=== PATIENT | male | born 1970 | race Caucasian/White ===

== ENCOUNTER 2016-11-16 00:25 | Observation (INO) | payer OTHER ==
[~2016-11-16] VITALS: Ht 162.6 cm; Wt 144.7 kg
[2016-11-16 03:12] LABS: BASOPHIL % 0.9 % (0-2); PLATELET COUNT 213 x10^3mcL (130-400); RED CELL DISTRIBUTION WIDTH 12.6 % (11.5-14.5)
[2016-11-16 03:37] LABS: CALCIUM 8.9 mg/dL (8.5-10.1); CHLORIDE SERUM 103 mmol/L (98-107); CREATININE SERUM 0.7 mg/dL (0.7-1.3); GFR1 > 60 mL/min; GLUCOSE SERUM 123 mg/dL (74-106); POTASSIUM SERUM 4.4 mmol/L (3.5-5.1); SODIUM SERUM 140 mmol/L (136-145)
[2016-11-16 03:41] LABS: ALBUMIN 3.7 g/dL (3.4-5.0); ALKALINE PHOSPHATASE 82 U/L (46-116); ALT/SGPT 26 U/L (16-63); AST/SGOT 17 U/L (15-37); BILIRUBIN TOTAL 0.65 mg/dL (0.20-1.00); LIPASE 125 IU/L (73-393); TOTAL PROTEIN, SERUM 7.5 g/dL (6.4-8.2)
[2016-11-16] MEDS ORDERED: HYDROCHLOROTH12.5 M2 PO (04:40)
[2016-11-16 05:50] VITALS: BP 122/63
[2016-11-16 06:49] LABS: CHOLESTEROL/HDL RATIO 4.8
[2016-11-16 07:02] LABS: FREE T4 1.18 ng/dL (0.76-1.46); FREE THYROXINE INDEX 3.1 ug/dL (1.4-4.5); T4(THYROXINE) 11.3 ug/dL (4.7-13.3)
[2016-11-16 07:17] LABS: T3 TOTAL 1.63 ng/mL
[2016-11-16 09:08] VITALS: BP 105/54
[2016-11-16 09:38] LABS: microscopic required? NO
[2016-11-16 10:00] LABS: urine erythrocyte NEGATIVE (NEGATIVE)
[2016-11-16 11:02] LABS: AMPHETAMINE QUAL UR NONE DETECTED (NEG <=1000)
[2016-11-16 13:28] VITALS: BP 125/70
[2016-11-16 17:03] VITALS: BP 106/58
[2016-11-16 21:25] VITALS: BP 113/48
[2016-11-17 06:03] VITALS: BP 111/62
[2016-11-17 06:41] LABS: BASOPHIL % 0.5 % (0-2); PLATELET COUNT 195 x10^3mcL (130-400); RED CELL DISTRIBUTION WIDTH 13.7 % (11.5-14.5)
[2016-11-17 06:44] LABS: CALCIUM 8.3 mg/dL (8.5-10.1); CARBON DIOXIDE 29.6 mmol/L (21-32); CHLORIDE SERUM 106 mmol/L (98-107); CREATININE SERUM 0.7 mg/dL (0.7-1.3); GFR1 > 60 mL/min; GLUCOSE SERUM 94 mg/dL (74-106); MAGNESIUM 2.1 mg/dL (1.8-2.4); PHOSPHOROUS 3.9 mg/dL (2.5-4.9); POTASSIUM SERUM 4.4 mmol/L (3.5-5.1); SODIUM SERUM 141 mmol/L (136-145)
[2016-11-17] MEDS ORDERED: LAC PO (10:26)
[2016-11-17] MEDS ORDERED: AUG500 PO (10:26)
[2016-11-17 11:00] VITALS: BP 100/56
== END 2016-11-17 14:26 | disposition home or self-care (01) | DRG 254 ==
LOC: ED 00:25 → DU 05:02
PROVIDERS: Emergency Medicine; ADMIT Family Medicine
DX: K42.0 Umbilical hernia with obstruction, without gangrene (principal); E66.01 Morbid (severe) obesity due to excess calories; E11.9 Type 2 diabetes mellitus without complications; K36 Other appendicitis; Z98.84 Bariatric surgery status; Z89.412 Acquired absence of left great toe; Z87.891 Personal history of nicotine dependence
CPT/HCPCS: 80307; 82962; 83880; 84439; G0378; G0480; J0500; J2543; J3490; J7030; Q0092

== ENCOUNTER 2018-02-22 07:06 | Emergency (ER) | payer OTHER ==
[~2018-02-22] VITALS: Ht 162.6 cm; Wt 147.4 kg
[~2018-02-22 07:06] MED LIST: AUG500 PO; HYDROCHLOROTH12.5 M2 PO; LAC PO
[2018-02-22 07:32] VITALS: Ht 162.6 cm; Wt 147.4 kg
[2018-02-22 09:46] LABS: BASOPHIL % 0.8 % (0-2); PLATELET COUNT 188 x10^3mcL (130-400); RED CELL DISTRIBUTION WIDTH 14.1 % (11.5-14.5)
[2018-02-22 10:03] LABS: CARBON DIOXIDE 28.6 mmol/L (21-32); CHLORIDE SERUM 103 mmol/L (98-107); CREATININE SERUM 0.8 mg/dL (0.7-1.3); GFR1 > 60 mL/min; GLUCOSE SERUM 128 mg/dL (74-106); POTASSIUM SERUM 4.2 mmol/L (3.5-5.1); SODIUM SERUM 139 mmol/L (136-145)
[2018-02-22 10:07] LABS: ALBUMIN 3.6 g/dL (3.4-5.0); ALKALINE PHOSPHATASE 77 U/L (46-116); ALT/SGPT 24 U/L (16-63); AST/SGOT 16 U/L (15-37); BILIRUBIN TOTAL 0.82 mg/dL (0.20-1.00); LIPASE 121 IU/L (73-393)
[2018-02-22 11:20] VITALS: BP 148/84
== END 2018-02-22 11:21 | disposition home or self-care (01) ==
LOC: ED 07:06
PROVIDERS: Emergency Medicine
DX: K80.20 Calculus of gallbladder without cholecystitis without obstruction (principal); I10 Essential (primary) hypertension; Z98.84 Bariatric surgery status
CPT/HCPCS: C9113; J2405; J7030; Q0092

== ENCOUNTER 2019-10-01 16:17 | Inpatient (IN) | payer SELFPAY ==
[~2019-10-01] VITALS: Ht 162.6 cm; Wt 153.8 kg
[2019-10-01 16:22] VITALS: Ht 162.6 cm; Wt 153.8 kg
--- NOTE | 2019-10-01 16:48 | NUR ---
SEEN BY DR. CADET. ORDERS NOTED.
[2019-10-01 17:07] LABS: CARBON DIOXIDE 23.2 mmol/L (21-32); CHLORIDE SERUM 101 mmol/L (98-107); GFR1 > 60 mL/min; GLUCOSE SERUM 176 mg/dL (74-106); POTASSIUM SERUM 3.6 mmol/L (3.5-5.1); SODIUM SERUM 138 mmol/L (136-145)
[2019-10-01 17:11] LABS: ALBUMIN 3.9 g/dL (3.4-5.0); ALKALINE PHOSPHATASE 81 U/L (46-116); ALT/SGPT 73 U/L (16-63); AMYLASE 30 U/L (25-115); AST/SGOT 32 U/L (15-37); BILIRUBIN TOTAL 0.7 mg/dL (0.20-1.00); LIPASE 120 IU/L (73-393); TOTAL PROTEIN, SERUM 7.7 g/dL (6.4-8.2)
[2019-10-01 17:23] LABS: BASOPHIL % 0.3 % (0-2); PLATELET COUNT 253 x10^3mcL (130-400)
--- NOTE | 2019-10-01 20:09 | NUR ---
REPORT GIVEN TO CHITRA VELIZ TO ASSUME CARE OF PT.
--- NOTE | 2019-10-01 20:17 | NUR ---
RECEIVED PT FROM ED VIA WHEELCHAIR, CAME IN DUE TO ABDOMINAL PAIN. AAOX4. DENIES HEADACHE/DIZZINESS. NO SOB NOTED, LUNG SOUNDS CTA, O2 SAT=95%, RA. DENIES CHEST PAIN/PRESSURE. DENIES ABDOMINAL PAIN/NAUSEA/VOMITING AT THIS TIME. BOWEL SOUNDS HYPOACTIVE. ABDOMEN IS SOFT AND ROUND. STATED THAT HE HAD SMALL, THIN STOOLS AT 2AM AND WAS ABLE TO PASS GAS ABOUT 15 MINUTES AGO. VOIDS. IV SITE PATENT AND INTACT. SIDE RAILS UPX2. CALL LIGHT ON REACH. ENDORSED TO PRIMARY NURSE CHITRA FOR CONTINUITY OF CARE
[2019-10-01 20:29] VITALS: BP 138/74
[2019-10-01 21:07] LABS: PHOSPHOROUS 1.1 mg/dL (2.5-4.9)
[2019-10-01 21:08] LABS: CHOLESTEROL/HDL RATIO 4.9
[2019-10-01 21:20] LABS: FREE T4 1.34 ng/dL (0.76-1.46); FREE THYROXINE INDEX 3.6 ug/dL (1.4-4.5); T4(THYROXINE) 11.6 ug/dL (4.7-13.3)
[2019-10-01 21:36] LABS: T3 TOTAL 1.84 ng/mL
--- NOTE | 2019-10-02 01:36 | NUR ---
PT RESTING IN BED. RR EVEN AND UNLABORED, RA. CHEST RISING EQUALLY AND NO SIGNS OF DISTRESS NOTED. IV LAC, POTASSIUM CHOLRIDE RUNNING AT 65ML, WNL. PT NPO. BED IN LOWEST POSITION AND CALL LIGHT WITHIN REACH. WILL CONTINUE TO MONITOR.
[2019-10-02 05:23] VITALS: BP 116/66
--- NOTE | 2019-10-02 05:48 | NUR ---
PT O2 SAT 92. PT WAS PUT ON 2L/NC. PT DENIES SOB, DIFFICULTY BREATHING, OR CP. RR EVEN AND UNLABORED, CHESTING RISING EQUALLY AND NO SIGNS OF ACUTE DISTRESS NOTED. WILL CONTINUE TO MONITOR.
--- NOTE | 2019-10-02 06:50 | NUR ---
PT RESTING IN BED, A0X4. PT CALM AND COOPERATIVE. RR EVEN AND UNLABORED, 2L/NC. DENIES SOB, DIFFICULTY BREATHING, OR CHEST PAIN. CHEST RISING EQUALLY, NO SIGNS OF ACUTE DISTRESS NOTED. IV RH NS @ 70. PT NPO. BED IN LOWEST POSITION AND CALL LIGHT WITHIN REACH. WILL ENDORSE CARE TO ONCOMING SHIFT NURSE. WILL CONTINUE TO MONITOR.
[2019-10-02 06:58] LABS: BASOPHIL % 0.3 % (0-2); PLATELET COUNT 207 x10^3mcL (130-400); RED CELL DISTRIBUTION WIDTH 14.3 % (11.5-14.5)
[2019-10-02 07:07] LABS: CALCIUM 7.8 mg/dL (8.5-10.1); CARBON DIOXIDE 27.5 mmol/L (21-32); CHLORIDE SERUM 106 mmol/L (98-107); CREATININE SERUM 0.7 mg/dL (0.7-1.3); GFR1 > 60 mL/min; GLUCOSE SERUM 106 mg/dL (74-106); MAGNESIUM 2.1 mg/dL (1.8-2.4); PHOSPHOROUS 3.5 mg/dL (2.5-4.9); POTASSIUM SERUM 3.8 mmol/L (3.5-5.1); SODIUM SERUM 141 mmol/L (136-145)
--- NOTE | 2019-10-02 07:20 | NUR ---
SEEN IN BED AAOX4. DENIES PAIN. BREATHING E/U ON O2 2LPM N/C. DENIES NAUSEA. OBESITY. KEPT NPO. XR SMALL BOWEL FOLLOW THROUGH WILL BE DONE. STATED HAD 2 SOFT BM THIS AM. IVF NS AT 70ML/HR INFUSING WELL TO RAC IV SITE. CALL LIGHT PLACED WITHIN EASY REACH. SIDERAILS UP X2.
[2019-10-02 09:00] VITALS: BP 110/55
--- NOTE | 2019-10-02 10:24 | NUR ---
SEEN BY DOCTOR MEZA. PATIENT MADE AWARE OF CURRENT CONDITION AND PLAN OF CARE.
[2019-10-02 12:10] VITALS: BP 114/62
--- NOTE | 2019-10-02 16:16 | NUR ---
SMALL BOWEL FOLLOW THROUGH IS NOT YET COMPLETED, PER PIECE DYEING MACHINE TENDER NEXT XRAY WILL BE AT 1730HRS. PATIENT APPEARS FRUSTATED BUT COOPERATIVE.
[2019-10-02 16:26] VITALS: BP 119/64
[2019-10-02 16:46] LABS: microscopic required? NO
[2019-10-02 16:57] LABS: urine erythrocyte NEGATIVE (NEGATIVE)
[2019-10-02 17:18] LABS: AMPHETAMINE QUAL UR NONE DETECTED (See below)
--- NOTE | 2019-10-02 18:19 | NUR ---
PER BROADCASTING EQUIPMENT MECHANIC SBFT IS COMPLETED. AWAITING FOR THE RESULT. PATIENT MADE AWARE.
[2019-10-02 19:25] VITALS: BP 117/59
--- NOTE | 2019-10-02 19:29 | NUR ---
RECIEVED PT FROM PREVIOUS SHIFT NURSE, SID VELIZ. PT RESTING IN BED, A0X4, CALM AND COOPERATIVE. SPEECH CLEAR AND NO FACIAL DROOPING NOTED. DENIES LANE, DIZZINESS, AND PAIN. RR EVEN AND UNLABORED ON 2L/NC, CHEST RISING EQUALLY, DENIES SOB OR DIFFICULTY BREATHING, NO SIGNS OF ACUTE DISTRESS NOTED. IV RAC, WNL, NS 70. L BIG TOE AMBUTATED. BED IN LOWEST POSITION AND CALL LIGHT WITHIN REACH. FAMILY AT BEDSIDE. WILL CONTINUE TO MONITOR.
--- NOTE | 2019-10-03 00:33 | NUR ---
PT RESTING IN BED. RR EVEN AND UNLABORED, 2L/NC, CHEST RISING EQUALLY. NO SIGNS OF ACUTE DISTRESS. RAC IV NS 70ML, WNL. BED IN LOWEST POSITION AND CALL LIGHT WITHIN REACH. WILL CONTINUE TO MONITOR.
[2019-10-03 04:37] VITALS: BP 98/51
--- NOTE | 2019-10-03 06:00 | NUR ---
PT BP: 98/51 (67), HR: 81. DR. MARR MADE AWARE. NO FURTHER ORDERS AT THIS MOMENT. WILL CONTINUE TO MONITOR.
--- NOTE | 2019-10-03 06:45 | NUR ---
PT RESTING IN BED, AOX4, CALM AND COOPERATIVE WITH CARE, SPEECH CLEAR. DENIES LANE, N.V, OR PAIN AT THIS MOMENT. RR EVEN AND UNLABORED ON 2L/NC, CHEST RISING EQUALLY AND DENIES SOB OR DIFFICULTY BREATHING. PT STILL ON CLEAR LIQUID DIET. NO SIGNS OF ACUTE DISTRESS NOTED. IV RAC WNL, NS 70ML. BED IN LOWEST POSITION AND CALL LIGHT WITHIN REACH. WILL ENDORSE CARE TO ONCOMING SHIFT NURSE, AND WILL CONTINUE TO MONITOR.
[2019-10-03 06:47] LABS: BASOPHIL % 0.3 % (0-2); PLATELET COUNT 178 x10^3mcL (130-400); RED CELL DISTRIBUTION WIDTH 13.7 % (11.5-14.5)
[2019-10-03 07:07] LABS: CALCIUM 8.1 mg/dL (8.5-10.1); CARBON DIOXIDE 29.3 mmol/L (21-32); CHLORIDE SERUM 105 mmol/L (98-107); CREATININE SERUM 0.7 mg/dL (0.7-1.3); GFR1 > 60 mL/min; GLUCOSE SERUM 88 mg/dL (74-106); MAGNESIUM 2.1 mg/dL (1.8-2.4); PHOSPHOROUS 3.3 mg/dL (2.5-4.9); POTASSIUM SERUM 4.5 mmol/L (3.5-5.1); SODIUM SERUM 140 mmol/L (136-145)
--- NOTE | 2019-10-03 07:33 | NUR ---
RECEIVED THIS AM AWAKE, ALERT AND ORIENTED.IN NO RESP. DISTRESS. VS WNL. IVF INFUSING WELL AND SITE CLEAR. NO C/O PAIN OR DISCOMFORT AT THIS TIME. CALL LIGHT WITHIN REACH. WILL CONTINUE WITH PLAN OF CARE.
[2019-10-03 08:11] VITALS: BP 131/79
[2019-10-03 11:57] VITALS: BP 131/79
[2019-10-03 12:16] VITALS: BP 111/70
--- NOTE | 2019-10-03 14:11 | NUR ---
PT DC'D HOME IN NO DISTRESS. AWAKE, ALERT AND ORIENTED. TOLERATED WELL WITH MEALS. NO N/V NOR ABD. PAIN. DC INSTRUCTIONS REVIEWED WITH PT AND FAMILY. NO RX GIVEN. PT TO CONT. WITH HOME MEDS. PT VERBALIZED UNDERSTANDING. HL REMOVED AND SITE CLEAR. PERSONAL BELONGINGS TAKEN HOME.
== END 2019-10-03 13:40 | disposition home or self-care (01) | DRG 394 ==
LOC: ED 16:17 → MU 19:28
PROVIDERS: Emergency Medicine; ADMIT Family Medicine
DX: K43.0 Incisional hernia with obstruction, without gangrene (principal); Z68.44 Body mass index [BMI] 60.0-69.9, adult; E66.01 Morbid (severe) obesity due to excess calories; G47.33 Obstructive sleep apnea (adult) (pediatric); E83.39 Other disorders of phosphorus metabolism; E78.5 Hyperlipidemia, unspecified; E02 Subclinical iodine-deficiency hypothyroidism; E11.9 Type 2 diabetes mellitus without complications; E83.51 Hypocalcemia; Z90.3 Acquired absence of stomach [part of]; Z90.49 Acquired absence of other specified parts of digestive tract; Z87.891 Personal history of nicotine dependence; Z79.84 Long term (current) use of oral hypoglycemic drugs; Z98.84 Bariatric surgery status
CPT/HCPCS: 83880; 84439; G0378; J2405; J2765; J3490; J7030; Q0092; Q9967